=== PATIENT | female | born 2000 | race Caucasian/White ===

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

== ENCOUNTER 2022-12-17 21:04 | Emergency (ER) | payer OTHER, MEDICAID ==
[~2022-12-17] VITALS: Ht 175.3 cm; Wt 83.9 kg
[2022-12-17 21:05] VITALS: BP_SYST 155; PULSE 90; RESP 16; TEMP 99; O2SAT 98
[2022-12-17] MEDS ORDERED: predniSONE 20 MG TABLET PO ONE (21:45)
[2022-12-17] MEDS ORDERED: FAMOTIDINE 20 MG TABLET PO ONE (21:45)
[2022-12-17] MEDS ORDERED: DIPHENHYDRAMINE HCL 25 MG CAPSULE PO ONE (21:45)
[2022-12-17] MEDS ORDERED: DIPH25TA62 PO (22:59)
[2022-12-17] MEDS ORDERED: PRED20TA PO (22:59)
[2022-12-17 23:16] VITALS: BP_SYST 107; PULSE 78; RESP 16; TEMP 98.9; O2SAT 98
== END 2022-12-17 23:16 | disposition home or self-care (01) ==
LOC: SED 21:04
DX: L50.9 Urticaria, unspecified (principal); R21 Rash and other nonspecific skin eruption; R07.0 Pain in throat; Z79.899 Other long term (current) drug therapy
CPT/HCPCS: 99284; Q0163; J7512